=== PATIENT | female | born 1955 | race African-American/Black ===

== ENCOUNTER 2022-08-31 07:54 | Emergency (ER) | payer OTHER, BC ==
[2022-08-31 08:48] VITALS: BP 151/75; PULSE 97; RESP 16; TEMP 97.8; BMI 43.4
== END 2022-08-31 09:57 | disposition home or self-care (01) ==
LOC: FER 07:54
DX: J20.5 Acute bronchitis due to respiratory syncytial virus (principal)
CPT/HCPCS: 0241U-QW; 71046-TC-FY; 99284-25